=== PATIENT | female | born 1995 | race Caucasian/White ===

== ENCOUNTER 2019-04-22 19:41 | Emergency (ER) | payer MEDICAID ==
[~2019-04-22] VITALS: Ht 154.9 cm; Wt 74.8 kg
[2019-04-22 19:51] VITALS: Ht 154.9 cm; Wt 74.8 kg
[2019-04-22 20:10] VITALS: BP 123/83
== END 2019-04-22 20:10 | disposition home or self-care (01) ==
LOC: ED 19:41
DX: H01.009 Unspecified blepharitis unspecified eye, unspecified eyelid (principal); H10.10 Acute atopic conjunctivitis, unspecified eye; G43.909 Migraine, unspecified, not intractable, without status migrainosus